=== PATIENT | female | born 1935 | race Caucasian/White ===

== ENCOUNTER 2017-04-01 19:35 | Emergency (ER) | payer MEDICARE ==
[2017-04-01] MEDS ORDERED: Ibuprofen 800 MG TAB ONE (20:00)
== END 2017-04-01 20:08 | disposition home or self-care (01) ==
LOC: SCSER 19:35
DX: J11.1 Influenza due to unidentified influenza virus with other respiratory manifestations (principal); I10 Essential (primary) hypertension; G25.81 Restless legs syndrome; Z79.899 Other long term (current) drug therapy
CPT/HCPCS: 99283